=== PATIENT | male | born 1970 | race Caucasian/White ===

== ENCOUNTER 2019-10-01 14:08 | Emergency (ER) | payer SELFPAY ==
[~2019-10-01] VITALS: Ht 170.2 cm; Wt 82.0 kg
[2019-10-01 14:16] VITALS: BP 128/74
== END 2019-10-01 14:55 | disposition left against medical advice (07) ==
LOC: ER 14:16
DX: F10.129 Alcohol abuse with intoxication, unspecified (principal); Y90.0 Blood alcohol level of less than 20 mg/100 ml; Z53.21 Procedure and treatment not carried out due to patient leaving prior to being seen by health care provider

== ENCOUNTER 2021-01-02 16:06 | Emergency (ER) | payer BC ==
[~2021-01-02] VITALS: Ht 172.7 cm; Wt 82.0 kg
[2021-01-02] MEDS ORDERED: SODIUM CHLORIDE 0.9% 1,000 ML IV ONE (19:45)
[2021-01-02] MEDS ORDERED: ONDANSETRON HCL 4MG/2ML INJ IV ONE (19:45)
[2021-01-02 20:22] LABS: CHLORIDE 97 mEq/L (98-107)
[2021-01-02 20:32] LABS: ETHANOL BLOOD 291 mg/dL
[2021-01-02] MEDS ORDERED: POTASSIUM CHLORIDE 20MEQ TABLET SR PO NR (21:00)
[2021-01-02] MEDS ORDERED: KCL 10MEQ/50ML PREMIX 50 ML IV NR (21:00)
[2021-01-02 21:11] LABS: BASOPHILS % 0.3 % (0.0-2.0); EOSINOPHILS % 0.2 % (0.0-5.0); HEMATOCRIT. 41.6 % (42.0-52.0); HEMOGLOBIN. 14.7 g/dL (14.0-18.0); LYMPHOCYTES % 10.2 % (20.0-50.0); MEAN CORPUSCULAR HEMOGLOBIN 34.5 pg (28.0-32.0); MEAN CORPUSCULAR VOLUME 97.8 fL (80.0-94.0); MEAN PLATELET VOLUME 8.1 fl (7.4-10.4); MONOCYTES % 5.2 % (2.0-8.0); NEUTROPHILS % 84.1 % (40.0-76.0); RED BLOOD CELL COUNT 4.25 mill/uL (4.7-6.1); RED CELL DISTRIBUTION WIDTH 13.2 % (11.6-14.6)
[2021-01-02 21:17] LABS: PLATELET 29 x1000/uL (130-400)
[2021-01-02] MEDS ORDERED: ONDA4TAB5 MT (22:29)
[2021-01-02 23:21] VITALS: BP 147/89
== END 2021-01-02 23:30 | disposition home or self-care (01) ==
LOC: ER 16:17
DX: F10.10 Alcohol abuse, uncomplicated (principal); E87.6 Hypokalemia; D69.6 Thrombocytopenia, unspecified; R07.81 Pleurodynia; R41.82 Altered mental status, unspecified; Y90.8 Blood alcohol level of 240 mg/100 ml or more
CPT/HCPCS: 36415; 70450; 71045; 80053; 80320; 83735; 84484; 85025; 93005; 96361; 96365; 96375; 99285; J2405; J3480; J7030; G0480

== ENCOUNTER 2022-02-07 08:07 | Emergency (ER) | payer BC ==
[~2022-02-07] VITALS: Ht 180.3 cm; Wt 78.0 kg
[~2022-02-07 08:07] MED LIST: ONDA4TAB5 MT
[2022-02-07] MEDS ORDERED: ONDANSETRON HCL 4MG/2ML INJ IV STA (08:41)
[2022-02-07] MEDS ORDERED: SODIUM CHLORIDE 0.9% 1,000 ML IV ONE (08:45)
[2022-02-07] MEDS ORDERED: LORAZEPAM 2MG/ML CPJ IV ONE (09:00)
[2022-02-07 09:02] LABS: BASOPHILS % 0.8 % (0.0-2.0); EOSINOPHILS % 1.1 % (0.0-5.0); HEMATOCRIT. 49.4 % (42.0-52.0); HEMOGLOBIN. 17.1 g/dL (14.0-18.0); LYMPHOCYTES % 33.3 % (20.0-50.0); MEAN CORPUSCULAR HEMOGLOBIN 33.1 pg (28.0-32.0); MEAN CORPUSCULAR VOLUME 95.4 fL (80.0-94.0); MEAN PLATELET VOLUME 6.9 fl (7.4-10.4); NEUTROPHILS % 57.8 % (40.0-76.0); PLATELET 119 x1000/uL (130-400); RED BLOOD CELL COUNT 5.18 mill/uL (4.7-6.1); RED CELL DISTRIBUTION WIDTH 14.7 % (11.6-14.6)
[2022-02-07 09:17] LABS: CHLORIDE 103 mEq/L (98-107)
[2022-02-07] MEDS ORDERED: CHLO25CA10 MT (11:03)
[2022-02-07 11:57] VITALS: BP 123/84
== END 2022-02-07 11:58 | disposition home or self-care (01) ==
LOC: ER 08:25
DX: F10.239 Alcohol dependence with withdrawal, unspecified (principal); Y90.9 Presence of alcohol in blood, level not specified; R00.0 Tachycardia, unspecified; R03.0 Elevated blood-pressure reading, without diagnosis of hypertension; F17.210 Nicotine dependence, cigarettes, uncomplicated; F32.9 Major depressive disorder, single episode, unspecified; Z71.41 Alcohol abuse counseling and surveillance of alcoholic
CPT/HCPCS: 36415; 80053; 83690; 83735; 85025; 96361; 96374; 96375; 99284; J2060; J2405; J7030

== ENCOUNTER 2025-02-04 11:49 | Inpatient (IN) | payer BC, OTHER ==
[~2025-02-04] VITALS: Ht 188 cm; Wt 84.8 kg
[~2025-02-04 11:49] MED LIST changes: +CHLO25CA10 MT
[2025-02-04] MEDS: SODIUM CHLORIDE 0.9% 1,000 ML IV ONE (13:50)
[2025-02-04 14:42] LABS: CHLORIDE 109 mEq/L (98-107); SODIUM 142 mEq/L (136-145)
[2025-02-04 14:44] LABS: CALCIUM 9.5 mg/dL (8.7-10.4); CARBON DIOXIDE 25 mEq/L (21-32)
[2025-02-04 14:45] LABS: BASOPHILS % 0.4 % (0.0-2.0); HEMATOCRIT. 33.4 % (42.0-52.0); HEMOGLOBIN. 11.2 g/dL (14.0-18.0); INR 1.1; LYMPHOCYTES % 20.2 % (20.0-50.0); MEAN CORPUSCULAR HGB CONC 33.4 g/dL (31.0-37.0); MEAN CORPUSCULAR VOLUME 95.9 fL (80.0-94.0); MEAN PLATELET VOLUME 7.8 fl (7.4-10.4); MONOCYTES % 9.2 % (2.0-8.0); NEUTROPHILS % 69.2 % (40.0-76.0); PLATELET 208 x1000/uL (130-400); PROTHROMBIN TIME 11.4 sec (9.6-11.0); RED BLOOD CELL COUNT 3.49 mill/uL (4.7-6.1); RED CELL DISTRIBUTION WIDTH 14.5 % (11.6-14.6); WHITE BLOOD COUNT 7.4 x1000/uL (4.5-11.0)
[2025-02-04 14:49] LABS: CREATININE 0.6 mg/dL (0.6-1.3); GLUCOSE 94 mg/dL (70-105); UREA NITROGEN BLOOD 9 mg/dL (9-23)
[2025-02-04 14:50] LABS: AMMONIA < 17 uMol/L (<32)
[2025-02-04] MEDS ORDERED: GUAIFENESIN 200MG/10ML SUGAR FREE UDC PO PRN (18:15)
[2025-02-04] MEDS ORDERED: ONDANSETRON HCL 4MG/2ML INJ IV PRN (18:15)
[2025-02-04] MEDS ORDERED: CLONIDINE 0.1MG TABLET PO PRN (18:15)
[2025-02-04] MEDS ORDERED: ACETAMINOPHEN 325MG TABLET PO PRN ×2 (18:15)
[2025-02-04] MEDS ORDERED: IBUPROFEN 600MG TABLET PO PRN (18:15)
[2025-02-04] MEDS ORDERED: IPRATROPIUM/ALBUTEROL 0.5-3(2.5)MG/3ML NEB HHN PRN (18:15)
[2025-02-04] MEDS ORDERED: MAGNESIUM/ALUMINUM HYDROXIDE/SIMETHICONE 30ML UDC PO PRN (18:15)
[2025-02-04] MEDS ORDERED: DOCUSATE SODIUM 100MG CAPSULE PO PRN (18:15)
[2025-02-04 18:25] VITALS: BP 132/87; PULSE 106; RESP 18; TEMP 36.6; O2SAT 96
[2025-02-04] MEDS ORDERED: ENOXAPARIN 40MG/0.4ML SYR SUBCUT SCH (18:30)
[2025-02-04 20:00] VITALS: BP 124/83; PULSE 97; RESP 17; TEMP 37; O2SAT 96
[2025-02-04 21:01] LABS: FOLIC ACID (FOLATE) SERUM > 20.00 ng/mL (>5.38)
[2025-02-04 21:04] LABS: VITAMIN B12 SERUM 304 pg/mL (211-911)
[2025-02-04 23:30] VITALS: BP 124/83; PULSE 97; RESP 17; TEMP 37
[2025-02-05] VITALS: BP 135/78; PULSE 98; RESP 18; TEMP 37; O2SAT 99
[2025-02-05 04:00] VITALS: BP 125/81; PULSE 98; RESP 18; TEMP 36.6; O2SAT 99
[2025-02-05] MEDS ORDERED: LEMB10TA (05:58)
[2025-02-05] MEDS ORDERED: METO25TA6 PO (06:06)
[2025-02-05] MEDS ORDERED: TAMS-54 PO (06:06)
[2025-02-05] MEDS ORDERED: THIA100T72 MT (06:06)
[2025-02-05] MEDS ORDERED: FOLI0.4T6 MT (06:06)
[2025-02-05] MEDS ORDERED: LYR25 PO (06:06)
[2025-02-05] MEDS ORDERED: RISP0.5T62 MT (06:06)
[2025-02-05] MEDS ORDERED: FINA5TAB11 PO (06:06)
[2025-02-05 08:00] VITALS: BP 134/86; PULSE 99; RESP 18; TEMP 36.6; O2SAT 100
[2025-02-05] MEDS: FOLIC ACID 1MG TABLET PO SCH (10:16)
[2025-02-05] MEDS: TAMSULOSIN HCL 0.4MG SR CAPSULE PO SCH (10:17)
[2025-02-05] MEDS: THIAMINE HCL 100MG TABLET PO SCH (10:17)
[2025-02-05] MEDS: ENOXAPARIN 80MG/0.8ML SYR SUBCUT SCH (10:18)
[2025-02-05 12:00] VITALS: BP 117/76; PULSE 105; RESP 18; TEMP 36.5; O2SAT 100
[2025-02-05 14:04] LABS: BASOPHILS % 0.4 % (0.0-2.0); EOSINOPHILS % 0.7 % (0.0-5.0); HEMATOCRIT. 35.4 % (42.0-52.0); HEMOGLOBIN. 12.1 g/dL (14.0-18.0); LYMPHOCYTES % 16.2 % (20.0-50.0); MEAN CORPUSCULAR HEMOGLOBIN 32.4 pg (28.0-32.0); MEAN CORPUSCULAR HGB CONC 34.3 g/dL (31.0-37.0); MEAN CORPUSCULAR VOLUME 94.6 fL (80.0-94.0); MEAN PLATELET VOLUME 8.3 fl (7.4-10.4); MONOCYTES % 10.3 % (2.0-8.0); NEUTROPHILS % 72.4 % (40.0-76.0); PLATELET 221 x1000/uL (130-400); RED BLOOD CELL COUNT 3.74 mill/uL (4.7-6.1); RED CELL DISTRIBUTION WIDTH 14.2 % (11.6-14.6); WHITE BLOOD COUNT 7.1 x1000/uL (4.5-11.0)
[2025-02-05 14:20] LABS: CARBON DIOXIDE 26 mEq/L (21-32); CHLORIDE 104 mEq/L (98-107); POTASSIUM 3.8 mEq/L (3.5-5.1); SODIUM 140 mEq/L (136-145)
[2025-02-05 14:21] LABS: CALCIUM 9.8 mg/dL (8.7-10.4)
[2025-02-05 14:25] LABS: CREATININE 0.5 mg/dL (0.6-1.3)
[2025-02-05 14:26] LABS: GLUCOSE 96 mg/dL (70-105); TRIGLYCERIDE 102 mg/dL (0-150); UREA NITROGEN BLOOD 6 mg/dL (9-23)
[2025-02-05 14:27] LABS: LDL CHOLESTEROL 118 mg/dL (5-100)
[2025-02-05 14:28] LABS: CHOLESTEROL 170 mg/dL (<200); HDL CHOLESTEROL 43 mg/dL (>55)
[2025-02-05 14:29] LABS: T4 FREE 1.13 ng/dL (0.89-1.76)
[2025-02-05 16:00] VITALS: BP 115/77; PULSE 118; RESP 18; TEMP 36.6; O2SAT 98
[2025-02-05 20:06] VITALS: BP 115/77; PULSE 118; TEMP 97.9; O2SAT 98
[2025-02-05 20:14] LABS: ALANINE AMINOTRANSFERASE 26 IU/L (10-49); ALBUMIN 4.2 g/dL (3.2-4.8); ASPARTATE AMINOTRANSFERASE 22 IU/L (<34); BILIRUBIN DIRECT 0.3 mg/dL (<=3.0); BILIRUBIN TOTAL 0.8 mg/dL (0.1-1.0); PROTEIN TOTAL 7.1 g/dL (6.0-8.3)
== END 2025-02-05 20:58 | disposition short-term general hospital (02) | DRG 92 ==
LOC: ER 11:49 → EDBEDREQ 13:59 → ENRESERV 17:53 → 8WST 17:59
PROVIDERS: ADMIT Internal Medicine; ATTEND Internal Medicine
DX: G92.8 Other toxic encephalopathy (principal); I82.431 Acute embolism and thrombosis of right popliteal vein; D53.9 Nutritional anemia, unspecified; E53.8 Deficiency of other specified B group vitamins; F32.A Depression, unspecified; Z86.73 Personal history of transient ischemic attack (TIA), and cerebral infarction without residual deficits
CPT/HCPCS: 36415; 71045; 80048; 80061; 80076; 82140; 82607; 82746; 84439; 84443; 85025; 93970; 99285; J1650; J7030